=== PATIENT | male | born 1980 | race African-American/Black ===

== ENCOUNTER 2020-11-25 10:23 | Emergency (ER) | payer OTHER ==
[~2020-11-25 10:23] MED LIST: COLCHICINE 0.60.6 MG PO; COREG 25MG TAB25 MG PO; FEOSOL325 MG PO; GABAPENTIN300 MG PO; LACTULOSE10 GM/15 M PO; NORCO 7.5-3251 EACH PO; NORVASC10 MG PO; SINGULAIR10 MG PO; TAPAZOLE10 MG PO
== END 2020-11-25 12:08 | disposition home or self-care (01) ==
LOC: ER1 10:23
DX: S60.031A Contusion of right middle finger without damage to nail, initial encounter (principal); S60.041A Contusion of right ring finger without damage to nail, initial encounter; I10 Essential (primary) hypertension; Z79.899 Other long term (current) drug therapy; F17.210 Nicotine dependence, cigarettes, uncomplicated; Z88.6 Allergy status to analgesic agent; Z88.1 Allergy status to other antibiotic agents; Z88.8 Allergy status to other drugs, medicaments and biological substances; W04.XXXA Fall while being carried or supported by other persons, initial encounter; Y93.89 Activity, other specified; Y92.89 Other specified places as the place of occurrence of the external cause
CPT/HCPCS: 73110; 73130; 99283

== ENCOUNTER 2021-07-27 22:27 | Emergency (ER) | payer OTHER ==
[2021-07-27 23:11] LABS: HEMOGLOBIN 15.7 gm/dl (14.0-17.5); RED BLOOD COUNT 4.93 M/UL (4.20-5.50); WHITE BLOOD COUNT 5.9 K/UL (4.5-11.0)
[2021-07-27 23:40] LABS: BUN/CREATININE RATIO 16 (0-10)
== END 2021-07-28 05:25 | disposition home or self-care (01) ==
LOC: ER1 22:27
PROVIDERS: Family Medicine
DX: R07.2 Precordial pain (principal); R07.89 Other chest pain
CPT/HCPCS: 70450; 71045; 80053; 82550; 82553; 83874; 84484; 85025; 94760; 99285

== ENCOUNTER 2021-09-21 19:59 | Emergency (ER) | payer OTHER ==
[2021-09-21 21:22] LABS: HEMOGLOBIN 15.3 gm/dl (14.0-17.5); RED BLOOD COUNT 4.88 M/UL (4.20-5.50); WHITE BLOOD COUNT 4.8 K/UL (4.5-11.0)
[2021-09-21 22:40] LABS: BUN/CREATININE RATIO 18 (0-10)
== END 2021-09-22 01:00 | disposition home or self-care (01) ==
LOC: ER1 19:59
PROVIDERS: Emergency Medicine
DX: R07.9 Chest pain, unspecified (principal); F17.210 Nicotine dependence, cigarettes, uncomplicated; Z86.711 Personal history of pulmonary embolism; J44.9 Chronic obstructive pulmonary disease, unspecified
CPT/HCPCS: 36415; 71045; 80053; 82550; 82553; 83874; 84484; 85025; 85652; 86140; 93005; 99285; J1885; Q9967